=== PATIENT | male | born 1935 | race Caucasian/White ===

== ENCOUNTER 2018-02-23 06:44 | Day surgery (SDC) | payer MEDICARE, OTHER ==
[2018-02-16 08:47] LABS: HEMOGLOBIN 15.6 g/dL (13.5-17.0); MEAN CORPUSCULAR HEMOGLOBIN 30.6 pg (27.0-33.4); MEAN CORPUSCULAR VOLUME 90 fl (80-97); PLATELET COUNT 204 10^3/uL (150-450); RED BLOOD COUNT 5.11 10^6/uL (4.35-5.55); RED CELL DISTRIBUTION WIDTH 14.1 % (11.5-14.0); WHITE BLOOD COUNT 6.9 10^3/uL (4.0-10.5)
[2018-02-16 09:10] LABS: ANION GAP 9 (5-19); BLOOD UREA NITROGEN 18 mg/dL (7-20); CARBON DIOXIDE 28 mmol/L (22-30); CHLORIDE 104 mmol/L (98-107); GLUCOSE 106 mg/dL (75-110); POTASSIUM 4.8 mmol/L (3.6-5.0); SODIUM 140.5 mmol/L (137-145)
--- NOTE | 2018-02-16 10:05 | RADIOLOGY REPORT (SQ) ---
EXAM DESCRIPTION: CHEST PA/LATERAL COMPLETED DATE/TIME: 02/16/2018 8:43 am REASON FOR STUDY: PRE-OP COMPARISON: None. EXAM PARAMETERS: NUMBER OF VIEWS: two views TECHNIQUE: Digital Frontal and Lateral radiographic views of the chest acquired. RADIATION DOSE: NA LIMITATIONS: none FINDINGS: LUNGS AND PLEURA: No opacities, masses or pneumothorax. No pleural effusion. MEDIASTINUM AND HILAR STRUCTURES: No masses or contour abnormalities. HEART AND VASCULAR STRUCTURES: Heart normal size. No evidence for failure. BONES: No acute findings. HARDWARE: CABG. OTHER: No other significant finding. IMPRESSION: No acute findings in the chest. TECHNICAL DOCUMENTATION: JOB ID: [id number] [employer]- All Rights Reserved Reading location - IP/workstation name: [email or web address]
--- NOTE | 2018-02-16 14:58 | EKG REPORT ---
SEVERITY:- ABNORMAL ECG - SINUS RHYTHM LEFT ANTERIOR FASCICULAR BLOCK BORDERLINE T WAVE ABNORMALITIES : Confirmed by: Gene Christian 16-Feb-2018 14:57:53
[~2018-02-23 06:44] MED LIST: CEFAZOLIN SODIUM 2 GM in DEXTROSE 5%-WATER 100 ML IV PRN; IBUPROFEN 800 MG in NORMAL SALINE 250 ML IV PRN; LACTATED RINGERS 1000 ML IV PRN; LIDOCAINE 0.5% INJ-PF (5 MG/ML) 50 ML SDV SUBCUT PRN
[2018-02-23] MEDS ORDERED: BUPIVACAINE HCL 0.25 % INJ/PF (2.5 MG/1 ML) 30 ML VIAL ONE (07:21)
[2018-02-23] MEDS ORDERED: PROPOFOL INJ 200 MG/20 ML VIAL IV ONE (08:38)
[2018-02-23] MEDS ORDERED: MIDAZOLAM 2 MG/2 ML INJ ONE (08:38)
[2018-02-23] MEDS ORDERED: HYDROMORPHONE HCL INJ/PF 2 MG/ML AMPULE ONE (08:38)
[2018-02-23] MEDS ORDERED: FENTANYL CITRATE INJ/PF 250 MCG/5 ML AMPULE ONE (08:38)
[2018-02-23] MEDS ORDERED: ACETAMINOPHEN 1,000 MG/100 ML RTUPB IV ONE (08:39)
[2018-02-23] MEDS ORDERED: PHENYLEPHRINE HCL INJ/PF 10 MG/1 ML SDV ONE (08:46)
[2018-02-23] MEDS ORDERED: DEXAMETHASONE SOD PHOSPHATE INJ 4 MG/1 ML VIAL ONE (08:46)
[2018-02-23] MEDS ORDERED: GLYCOPYRROLATE 1 MG/5 ML SYRINGE ONE (08:46)
[2018-02-23] MEDS ORDERED: ROCURONIUM BROMIDE INJ 50 MG/5 ML VIAL IV ONE (08:46)
[2018-02-23] MEDS ORDERED: ONDANSETRON HCL INJ/PF 4 MG/2 ML SDV ONE (08:46)
[2018-02-23] MEDS ORDERED: NEOSTIGMINE METHYLSULFATE 10 MG/10 ML VIAL ONE (08:46)
[2018-02-23] MEDS ORDERED: FENTANYL CITRATE INJ/PF 100 MCG/2 ML AMPUL IV PRN ×2 (10:13)
[2018-02-23] MEDS ORDERED: PROMETHAZINE HCL INJ 25 MG/1 ML VIAL IV PRN (10:13)
[2018-02-23] MEDS ORDERED: MEPERIDINE HCL/PF INJ 25 MG/1 ML DISP.SYRIN IV PRN (10:13)
[2018-02-23] MEDS ORDERED: DIPHENHYDRAMINE HCL 50 MG/ML VIAL IV PRN (10:13)
--- NOTE | 2018-02-23 12:11 | Discharge Summary ---
Discharge Summary (SDC) - Discharge Final Diagnosis: Large bilateral inguinal hernias Date of Surgery: 02/23/18 Discharge Date: 02/23/18 Condition: Stable Treatment or Instructions: Discharge home. Diet as tolerated. Activity: No lifting greater than 10 pounds x 4 weeks. Follow-up with me in 7-10 days. [place] 10/325 mg p.o. every 6 hours as needed for pain. Okay to shower in 48 hours. No tub baths times 2 weeks. Referrals: ABDON MCCORMICK MD [Primary Care Provider] - Discharge Diet: As Tolerated Respiratory Treatments at Home: Deep Breathing/Coughing, Incentive Spirometer Discharge Activity: No Lifting Over 10 Pounds Home Care Assistance: None Needed Report the Following to Your Physician Immediately: Shortness of Breath, Nausea, Vomiting, Fever over 101 Degrees, Unusual Bleeding, Redness, Swelling, Warmth
--- NOTE | 2018-02-23 12:22 | Operative Report ---
Nonrecallable Operative Report DATE OF SURGERY: 02/23/18 PREOPERATIVE DIAGNOSIS: Large bilateral inguinal hernias POSTOPERATIVE DIAGNOSIS: 1. Large bilateral inguinal hernias. 2. Inflammatory reaction in the right and left lower quadrants involving the colon and small bowel. OPERATION: 1. Robot-assisted laparoscopic lysis of adhesions for greater than 1 hour. 2. Robot-assisted laparoscopic bilateral inguinal hernia repair with mesh. SURGEON: LEBRON MACHUCA ANESTHESIA: GA TISSUE REMOVED OR ALTERED: None COMPLICATIONS: None apparent ESTIMATED BLOOD LOSS: Minimal PROCEDURE: Drains/implants: Right and left large 3 DMax inguinal hernia mesh. Procedure in detail: After informed consent was obtained, the patient was brought to the operating room and laid in supine position. The area of the abdomen was prepped and draped in a normal sterile fashion. A supraumbilical incision was created with a 15 blade scalpel. Dissection was carried through the subcutaneous tissue using sharp and blunt dissection. The linea alba fascia was incised sharply, the abdomen was entered sharply. The balloon trocar was inserted, and pneumoperitoneum was achieved. 2 right and left lateral abdominal wall trochars were placed under direct laparoscopic visualization. These were 8 mm robotic trochars. The robot was then brought over the patient and docked appropriately. I then assumed my position at the surgeon's console. Upon examination of the abdominal cavity there is noted to be an inflammatory reaction with relatively dense adhesions present in bilateral groins involving the colon and small bowel. Lysis of adhesions was then undertaken sharply in order to free the sigmoid colon and small bowel from the left anterior/inferior abdominal wall. Sharp dissection was also used to free the cecum and small bowel from the right lower anterior abdominal wall. Once the lysis of adhesions was completed and bilateral inguinal hernia defects could be identified, they were found to be rather large. Dissection was begun in the right groin. The peritoneum was scored 2-3 cm superior to the right inguinal hernia defect. A preperitoneal dissection was then undertaken. The hernia sac was reduced into the abdominal cavity using sharp dissection, blunt dissection, and electrocautery. Great care was taken not to injure the cord structures. Once the hernia sac was freed, a 3 DMax inguinal hernia mesh was placed into the preperitoneal space. The mesh was sutured medially and superiorly using 2-0 Vicryl suture. Once the mesh was found to lie in good place, the peritoneum was closed. This was done using 2-0 V lock suture in simple running fashion. Attention was then turned to the left groin. The left inguinal hernia defect was identified. The peritoneum was scored at approximately 2-3 cm superior to the inguinal hernia defect. A preperitoneal dissection was undertaken. This was done with sharp dissection, blunt dissection, and electrocautery. The hernia sac was freed with great care so as not to injure the cord structures. Once this was completed a large left-sided 3 DMax inguinal hernia mesh was placed into the preperitoneal space. It was sutured using 2-0 Vicryl suture medially and superiorly. Once the mesh was sutured in, the peritoneum was closed using 2-0 V lock suture in simple running fashion. Once this was completed the hernia repairs were inspected. Everything appeared in good order. The bowel was also inspected and was found to be free of any obvious defect. Once this was completed, the robot was undocked and I scrubbed back into the case. The trochars were at this time removed. The supraumbilical fascia was closed using 0 Vicryl suture in [id number] fashion. The overlying skin was closed using 4-0 Vicryl Rapide suture in subcuticular fashion. Dressings were placed, and the procedure was concluded. All sponge, instrument, and needle counts were correct x2. Condition: Stable. Linda Ashley PA-C was scrubbed and present the entirety of the procedure. She assisted with all portions of the procedure including placement of the trochars, docking of the robot, exchanging of the robotic instruments, closure of the fascia, and closure of the skin.
[2018-02-23] MEDS ORDERED: SIMETHICONE 80 MG TAB.CHEW ONE (14:08)
[2018-02-23] MEDS ORDERED: SIMETHICONE 80 MG TAB.CHEW PO ONE (14:15)
[2018-02-23] MEDS ORDERED: HYDROCODONE/ACETAMINOPHEN 10-325 MG TABLET ONE (14:32)
[2018-02-23 16:25] VITALS: BP 132/75
== END 2018-02-23 15:55 | disposition home or self-care (01) ==
LOC: OROUT 06:44
PROVIDERS: ATTEND Surgery
DX: K40.20 Bilateral inguinal hernia, without obstruction or gangrene, not specified as recurrent (principal); Z85.46 Personal history of malignant neoplasm of prostate; I10 Essential (primary) hypertension; Z79.899 Other long term (current) drug therapy; Z79.82 Long term (current) use of aspirin; I25.10 Atherosclerotic heart disease of native coronary artery without angina pectoris; I48.91 Unspecified atrial fibrillation; Z01.818 Encounter for other preprocedural examination
CPT/HCPCS: 49650; S2900; 36415; 71046; 80048; 840; 84132; 85027; 93005; 93010; C1781; J0131; J0690; J1100; J1170; J1741; J2250; J2370; J2405; J2704; J3010; J3490; J7050